=== PATIENT | male | born 1955 | race Caucasian/White ===

== ENCOUNTER 2016-12-18 06:42 | Emergency (ER) | payer MEDICAID ==
[~2016-12-18] VITALS: Ht 182.9 cm; Wt 81.6 kg
[~2016-12-18 06:42] MED LIST: BACTRIM DS TAB1 EAC1 ORAL; CIPROFLOXACIN500 M2 ORAL; CLINDAMYCIN HC300 MG ORAL; IBUPROFEN600 MG ORAL; NORCO 5-325 TA1 EACH ORAL
[2016-12-18 07:15] VITALS: BP 135/84
[2016-12-18] MEDS ORDERED: ACETAMINOPHEN-1 EAC1 ORAL (07:32)
[2016-12-18] MEDS ORDERED: IBUPROFEN600 MG ORAL (07:32)
[2016-12-18] MEDS ORDERED: BACTRIM DS TAB1 EAC1 ORAL (07:32)
[2016-12-18 07:36] VITALS: BP 135/84
--- NOTE | 2016-12-18 14:53 | Emergency Room Report ---
History of Present Illness General Chief Complaint: Skin Rash/Abscess Source: Patient Present Illness HPI Patient presents with redness and discomfort to the right buttock area Reports redness ongoing for the past 3-4 weeks patient states that he does get vitamin B 12 injections in that area and has had infections before Denies any fevers or chills denies any bodyache pain to the buttock area as 4/10 Denies any problems with defecation denies any rash patient reports some discharge from the area of infection already Pain is worse with sitting Allergies: Coded Allergies: PENICILLINS (Verified Allergy, Unknown, 01/20/16) Patient History Past Medical History: see triage record Pertinent Family History: none Reviewed Nursing Documentation: PMH: Agreed, PSxH: Agreed Nursing Documentation-PMH Hx Cardiac Problems: No - Hep C Review of Systems All Other Systems: negative except mentioned in HPI Physical Exam Vital Signs Date Time Temp Pulse Resp B/P Pulse Ox O2 Delivery O2 Flow Rate FiO2 12/18/16 06:56 98.1 86 18 139/86 95 Room Air Sp02 EP Interpretation: reviewed, normal General Appearance: well appearing, no apparent distress Head: normocephalic, atraumatic Eyes: bilateral eye EOMI, bilateral eye PERRL ENT: hearing grossly normal, normal pharynx, TMs + canals normal, uvula midline Neck: full range of motion, supple, no meningismus, no bony tend Respiratory: lungs clear, normal breath sounds, no rhonchi, no respiratory distress, no retraction, no accessory muscle use Cardiovascular #1: normal peripheral pulses, regular rate, rhythm, no edema, no gallop, no JVD, no murmur Gastrointestinal: normal bowel sounds, non tender, soft, no mass, no organomegaly, non-distended, no guarding, no hernia, no pulsatile mass, no rebound Genitourinary: no CVA tenderness Musculoskeletal: normal inspection Neurologic: oriented x3, responsive, landscape foreman III-XII nml as tested, motor strength/ tone normal, sensory intact Psychiatric: mood/affect normal Skin: other - Erythematous lesion on the right buttock area appears to be fairly well circumscribed 3 x 4 cm , no obvious fluctuance, there is a open area with serosanguineous discharge, Lymphatic: normal inspection, no adenopathy Medical Decision Making Diagnostic Impression: Primary Impression: cellulitis Additional Impression: Abscess ER Course Patient has several areas of skin dimpling in line With previous infections I did discuss with the patient at length regarding the need for close outpatient followup Need for specialty consultation At this time early signs of cellulitis of her chronic abscess also needs to be considered Patient has refused further intervention previously and again with this visit refuses any further intervention requesting antibiotic coverage And states that he will have close outpatient followup , Last Vital Signs Date Time Temp Pulse Resp B/P Pulse Ox O2 Delivery O2 Flow Rate FiO2 12/18/16 07:36 98.2 78 18 135/84 100 Room Air Status: improved Disposition: HOME, SELF-CARE Condition: Stable Scripts Acetaminophen With Codeine (T#3) (TYLENOL #3 TAB*) Y Tab 1 TAB ORAL Q8H Y for For Pain, #10 TAB Prov: CMAMY RIVERA D.O. 12/18/16 Ibuprofen* (MOTRIN*) 600 Mg Tablet 600 MG ORAL Q8H Y for For Pain, #20 TAB 0 Refills Prov: CAMMY RIVERA D.O. 12/18/16 Trimethoprim/Sulfamethoxazole 160/800* (BACTRIM DS TABLET*) 1 Each Tablet 1 TAB ORAL Q12H, #14 TAB 0 Refills Prov: CAMMY RIVERA D.O. 12/18/16 Referrals: NON PHYSICIAN (PCP) Patient Instructions: Abscess, Cellulitis, [id number] Additional Instructions: Patient is provided with the discharge instructions notified to follow up with primary doctor in the next 2-3 days otherwise return to the er with any worsening symptoms. CAMMY RIVERA D.O. Dec 18, 2016 14:52
== END 2016-12-18 07:36 | disposition home or self-care (01) ==
LOC: EMR 07:21
DX: L03.317 Cellulitis of buttock (principal); L02.31 Cutaneous abscess of buttock; B19.20 Unspecified viral hepatitis C without hepatic coma; Z88.0 Allergy status to penicillin
CPT/HCPCS: 99282

== ENCOUNTER 2017-01-24 07:21 | Emergency (ER) | payer MEDICAID ==
[~2017-01-24] VITALS: Ht 182.9 cm; Wt 83.9 kg
[~2017-01-24 07:21] MED LIST changes: +ACETAMINOPHEN-1 EAC1 ORAL
[2017-01-24] MEDS ORDERED: NKM (07:30)
[2017-01-24] MEDS ORDERED: ASPIR 8181 MG ORAL (07:30)
[2017-01-24] MEDS ORDERED: BACTRIM DS TAB1 EAC1 ORAL (07:59)
[2017-01-24] MEDS ORDERED: KEFLEX500 MG ORAL (07:59)
[2017-01-24 08:10] VITALS: BP 131/80
--- NOTE | 2017-01-24 08:45 | Emergency Room Report ---
History of Present Illness General Chief Complaint: Skin Rash/Abscess Source: Patient Present Illness HPI 61-year-old male presents ED complaining of right buttock pain and swelling. Notes having the symptoms for several weeks. Patient states that he injects pain medications into his buttocks. States he has frequent history of infections to right buttock. States that he was here in November and completed antibiotic prescriptions but states that symptoms did not take better. Pain is throbbing, 8/10, nonradiating. Denies fevers or chills. Denies discharge. No other aggravating or relieving factors. Denies any other associated symptoms Allergies: Coded Allergies: PENICILLINS (Verified Allergy, Unknown, 01/20/16) Patient History Past Medical History: none Past Surgical History: none Pertinent Family History: none Social History: Denies: alcohol use, drug use, smoking Immunizations: UTD Reviewed Nursing Documentation: PMH: Agreed, PSxH: Agreed Nursing Documentation-PMH Past Medical History: No History, Except For Hx Cardiac Problems: No - Hep C Review of Systems All Other Systems: negative except mentioned in HPI Physical Exam Vital Signs Date Time Temp Pulse Resp B/P Pulse Ox O2 Delivery O2 Flow Rate FiO2 01/24/17 07:25 97.3 82 16 110/67 99 Room Air Sp02 EP Interpretation: reviewed, normal General Appearance: no apparent distress, alert, GCS 15, non-toxic Head: normocephalic Eyes: bilateral eye PERRL, bilateral eye normal inspection ENT: normal ENT inspection Neck: normal inspection Respiratory: normal inspection Cardiovascular #1: normal inspection Gastrointestinal: normal inspection Rectal: deferred Genitourinary: no CVA tenderness Musculoskeletal: normal inspection Neurologic: alert, oriented x3, responsive, motor strength/tone normal, sensory intact, speech normal Psychiatric: normal inspection Skin: other - diffuse erythema/induration R buttocks. fluctuance noted Lymphatic: normal inspection Procedures Incision and Drainage Incision and Drainage : Consent: Verbal Blade Size: 11 I & D Procedure: betadine prep, sterile drapes applied, sterile dressing applied Wound Location: other - R buttock Wound Explored: clean Anesthesia: 1% Lidocaine Splint Applied?: No Sling Applied?: No Complications: Other - no purulent discharge expressed Medical Decision Making Diagnostic Impression: Primary Impression: Abscess of buttock ER Course Hospital Course 34-year-old female presents to ED with redness, swelling to right buttock Differential diagnoses include: Cellulitis, dermatitis, insect bite, abscess Clinical course Patient placed on stretcher. After initial history, physical exam reveals a elderly male in no acute distress. On exam there is diffuse erythema and induration to right buttock. Fluctuance noted. I attempted to drain any abscess but no purulent discharge expressed. I believe the abscess is likely deeper. I believe patient requires IV antibiotics, admission and likely imaging to further localize the infection. Patient states he did not want to be admitted. does not want imaging. Does not want IV antibiotics. Patient states he will try antibiotics at home and return to ED symptoms did not improve Explained to patient that he will have to sign out AGAINST MEDICAL ADVICE Understands the risks of leaving. Patient has competency to make his own decisions. Signed AMA form. Diagnosis -abscess of buttock Left AMA. Given prescriptions for Keflex and Bactrim Last Vital Signs Date Time Temp Pulse Resp B/P Pulse Ox O2 Delivery O2 Flow Rate FiO2 01/24/17 08:10 98.7 73 16 131/80 98 Room Air Status: unchanged Disposition: AGAINST MEDICAL ADVICE Condition: Stable Scripts Trimethoprim/Sulfamethoxazole 160/800* (BACTRIM DS TABLET*) 1 Each Tablet 1 TAB ORAL Q12H, #20 TAB 0 Refills Prov: JENNY HUTSON M.D. 01/24/17 Cephalexin* (KEFLEX*) 500 Mg Capsule 500 MG ORAL Q6H for 10 Days, #40 CAP 0 Refills Prov: JENNY HUTSON M.D. 01/24/17 Patient Instructions: JENNY Ortega M.D. Jan 24, 2017 08:45
== END 2017-01-24 08:10 | disposition left against medical advice (07) ==
LOC: EMR 07:55
DX: L02.31 Cutaneous abscess of buttock (principal); B19.20 Unspecified viral hepatitis C without hepatic coma; Z88.0 Allergy status to penicillin
CPT/HCPCS: 10060

== ENCOUNTER 2018-08-27 18:20 | Emergency (ER) | payer MEDICAID ==
[~2018-08-27] VITALS: Ht 182.9 cm; Wt 79.4 kg
[~2018-08-27 18:20] MED LIST changes: +ASPIR 8181 MG ORAL; +KEFLEX500 MG ORAL; +NKM
[2018-08-27 18:36] VITALS: BP 122/86
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
[2018-08-27] MEDS ORDERED: BACTROBAN CR1 APPLIC TOPIC (19:26)
[2018-08-27 19:38] VITALS: BP 122/86
--- NOTE | 2018-08-28 12:04 | Diagnostic Imaging Report ---
Indication: Left leg pain Technique: Grayscale and duplex images of the left lower extremity veins Comparison: Findings: Normal compressibility of all deep venous structures. Color Doppler grayscale images demonstrate no evidence of intraluminal thrombus. Normal phasic Doppler waveforms, demonstrating normal augmentation response, no evidence of valvular insufficiency. Patient downstream greater saphenous vein Impression: Negative for left lower extremity deep venous thrombosis This agrees with the preliminary interpretation provided overnight by [facility].
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
== END 2018-08-27 19:39 | disposition home or self-care (01) ==
LOC: EMR 18:52
DX: M79.662 Pain in left lower leg (principal); S83.8X2A Sprain of other specified parts of left knee, initial encounter; R60.0 Localized edema; V23.4XXA Motorcycle driver injured in collision with car, pick-up truck or van in traffic accident, initial encounter; Z88.0 Allergy status to penicillin; Y93.9 Activity, unspecified; Y92.9 Unspecified place or not applicable; Y99.9 Unspecified external cause status
CPT/HCPCS: 93971; 99284